=== PATIENT | female | born 1975 | race Caucasian/White ===

== ENCOUNTER 2017-02-19 19:58 | Emergency (ER) | payer OTHER, BC ==
[2017-02-19 20:23] VITALS: BP 136/84; PULSE 90; TEMP 99.4; BMI 25.7
--- NOTE | 2017-02-19 20:47 | PDOC ---
History of Present Illness - General Chief Complaint: Injury Stated Complaint: FALL/YPD Time Seen by Provider: 02/19/17 20:38 Past History - Past Medical History Allergies/Adverse Reactions: Allergies Allergy/AdvReac Type Severity Reaction Status Date / Time egg AdvReac GI UPSET Verified 02/19/17 20:23 Home Medications: Ambulatory Orders Cyanocobalamin [Vitamin B12 -] 100 mcg PO DAILY 10/29/12 Norgestimate-Ethinyl Estradiol [Mononessa 28 Tablet] 1 each PO DAILY 10/29/12 Anemia: Yes (B12 DEFICIENCY) Asthma: No Cancer: No Cardiac Disorders: No CVA: No COPD: No CHF: No DVT: No Dementia: No Diabetes: No Dialysis: No GI Disorders: Yes Disorders: No HTN: No Hypercholesterolemia: No Kidney Stones: No Liver Disease: No Psychiatric Problems: No Seizures: No Thyroid Disease: No Lung CA: No - Surgical History Abdominal Surgery: No Appendectomy: No Cardiac Surgery: No Cholecystectomy: No Gastric Stapling: No GI Surgery: No Lung Surgery: No Neurologic Surgery: No Orthopedic Surgery: No - Suicide/Smoking/Psychosocial Hx Smoking Status: Yes Smoking History: Current every day smoker Have you smoked in the past 12 months: Yes Number of Cigarettes Smoked Daily: 20 Information on smoking cessation initiated: No 'Breaking Loose' booklet given: 10/30/12 Hx Alcohol Use: No Drug/Substance Use Hx: No Substance Use Type: None *Physical Exam - Vital Signs Last Vital Signs Temp Pulse Resp BP Pulse Ox 99.4 F 90 20 136/84 97 02/19/17 20:19 02/19/17 20:19 02/19/17 20:19 02/19/17 20:19 02/19/17 20:19 *DC/Admit/Observation/Transfer Diagnosis at time of Disposition: Shoulder pain, right Qualifiers: Chronicity: acute Qualified Code(s): M25.511 - Pain in right shoulder Knee pain, right Qualifiers: Chronicity: acute Qualified Code(s): M25.561 - Pain in right knee Fall Qualifiers: Encounter type: initial encounter Qualified Code(s): W19.XXXA - Unspecified fall, initial encounter - Discharge Dispostion Disposition: HOME Condition at time of disposition: Good Admit: No - Referrals Referrals: Benji Bustos MD [Staff Physician] - - Patient Instructions Printed Discharge Instructions: DI for Shoulder Pain Additional Instructions: Your x-ray today was negative for any broken bones in her leg. Please wear the Mehul wrap to help reduce the size of the lump on your knee. You may also ice the area. Please use bacitracin over the scrape. Your given a sling to help relieve pain for your shoulder. If the symptoms of your shoulder pain do not relieve themselves within the next 2-3 days please see orthopedics. A referral has been provided for you. You may take Motrin 800 mg 3 times a day to help with your pain. Return to the emergency department if you have worsening pain, fevers, chills, or any changes in your symptoms. - Post Discharge Activity Forms/Work/School Notes: Back to Work
[2017-02-19] MEDS ORDERED: IBUPROFEN 400 MG TABLET (FP) PO ONE ×2 (20:48→20:50)
== END 2017-02-19 21:42 | disposition home or self-care (01) ==
LOC: JERFT 19:58
DX: M25.561 Pain in right knee (principal); M25.511 Pain in right shoulder; F17.210 Nicotine dependence, cigarettes, uncomplicated; W01.0XXA Fall on same level from slipping, tripping and stumbling without subsequent striking against object, initial encounter; Y93.89 Activity, other specified; Y92.89 Other specified places as the place of occurrence of the external cause
CPT/HCPCS: 73562-TC-RT; 99281-25

== ENCOUNTER 2018-05-30 18:23 | Emergency (ER) | payer OTHER, BC ==
--- NOTE | 2018-05-30 18:26 | PDOC ---
Rapid Medical Evaluation Time Seen by Provider: 05/30/18 18:24 Medical Evaluation: Allergies Allergy/AdvReac Type Severity Reaction Status Date / Time egg AdvReac GI UPSET Verified 02/19/17 20:23 05/30/18 18:24 I have performed a brief in-person evaluation of this patient. The patient presents with a chief complaint of: dizziness x 2 days Pertinent physical exam findings: Lungs CTAB. RRR. no m/r/g. I have ordered the following: labs, urine, CTA The patient will proceed to the ED for further evaluation. Discharge Disposition - Diagnosis Dizziness - Referrals - Patient Instructions - Post Discharge Activity
[2018-05-30 18:27] VITALS: BP 171/81; TEMP 97.9; BMI 25.4
--- NOTE | 2018-05-30 19:17 | PDOC ---
History of Present Illness - General Chief Complaint: Shortness of Breath Stated Complaint: SOB Time Seen by Provider: 05/30/18 18:24 - History of Present Illness Initial Comments: The pt is a 42F w/ a history of IBS, smoking, OCP use, and recent travel back from the [facility] who presents for evaluation of several days of fatigue and sudden onset SOB that started at 1700 today. 05/30/18 19:28 05/30/18 19:47 Past History - Past Medical History Allergies/Adverse Reactions: Allergies Allergy/AdvReac Type Severity Reaction Status Date / Time egg AdvReac GI UPSET Verified 05/30/18 18:27 Home Medications: Ambulatory Orders Cyanocobalamin [Vitamin B12 -] 100 mcg PO DAILY 10/29/12 Norgestimate-Ethinyl Estradiol [Mononessa 28 Tablet] 1 each PO DAILY 10/29/12 Anemia: Yes (B12 DEFICIENCY) Asthma: No Cancer: No Cardiac Disorders: No CVA: No COPD: No CHF: No DVT: No Dementia: No Diabetes: No Dialysis: No GI Disorders: Yes Disorders: No HTN: No Hypercholesterolemia: No Kidney Stones: No Liver Disease: No Psychiatric Problems: No Seizures: No Thyroid Disease: No Lung CA: No - Surgical History Abdominal Surgery: No Appendectomy: No Cardiac Surgery: No Cholecystectomy: No Gastric Stapling: No GI Surgery: No Lung Surgery: No Neurologic Surgery: No Orthopedic Surgery: No - Suicide/Smoking/Psychosocial Hx Smoking Status: Yes Smoking History: Former smoker Have you smoked in the past 12 months: No Number of Cigarettes Smoked Daily: 20 If you are a former smoker, when did you quit?: 2019 Information on smoking cessation initiated: No 'Breaking Loose' booklet given: 10/30/12 Hx Alcohol Use: No Drug/Substance Use Hx: No Substance Use Type: None Review of Systems - Review of Systems Able to Perform ROS?: Yes Comments:: GENERAL/CONSTITUTIONAL: No fever or chills. No weakness HEAD, EYES, EARS, NOSE AND THROAT: No change in vision. No ear pain or discharge. No sore throat CARDIOVASCULAR: No chest pain RESPIRATORY: Denies cough, hemoptysis GASTROINTESTINAL: No nausea, vomiting, diarrhea or constipation GENITOURINARY: No dysuria, frequency, or change in urination MUSCULOSKELETAL: No joint or muscle swelling or pain. No neck or back pain SKIN: No rash NEUROLOGIC: No loss of consciousness, or change in strength/sensation ENDOCRINE: No increased thirst. No abnormal weight change HEMATOLOGIC/LYMPHATIC: No anemia, easy bleeding, or history of blood clots ALLERGIC/IMMUNOLOGIC: No hives or skin allergy 05/30/18 19:16 Is the patient limited Swedish proficient: No *Physical Exam - Vital Signs Last Vital Signs Temp Pulse Resp BP Pulse Ox 97.9 F 94 H 20 171/81 H 100 05/30/18 18:25 05/30/18 18:25 05/30/18 18:25 05/30/18 18:25 05/30/18 18:25 - Physical Exam Comments: GENERAL: Awake, alert, and oriented to person/place/time, in no acute distress HEAD: No signs of trauma, normocephalic, atraumatic EYES: PERRLA, EOMI, sclera anicteric, conjunctiva clear ENT: Hearing grossly normal, nares patent, oropharynx clear without exudates. No uvular deviation. Moist mucosa LUNGS: No distress, speaks full sentences, clear to auscultation bilaterally HEART: Regular rate and rhythm, normal S1 and S2, no murmurs appreciated, peripheral pulses normal and equal bilaterally ABDOMEN: Soft, nontender, normoactive bowel sounds. No guarding, no rebound EXTREMITIES: Normal inspection, Normal range of motion, no edema. No clubbing or cyanosis NEUROLOGICAL: Cranial nerves II through XII grossly intact. Normal speech, normal gait, no focal sensorimotor deficits SKIN: Warm, Dry 05/30/18 19:17 ED Treatment Course - LABORATORY CBC & Chemistry Diagram: 05/30/18 19:10 05/31/18 01:06 Medical Decision Making - Medical Decision Making ED Course CBC to evaluate for anemia/leukocytosis Cardiac profile to evaluate for ACS CTA chest to evaluate for PE ECG 05/30/18 19:45 No leukocytosis No anemia 05/30/18 20:33 Given 1L NS Trop neg x2 Repeat HCO3 improved CTA neg for PE Pt feels improved s/p IVF Plan for D/C w/ PCP f/u Discharge instructions and return precautions given Dispo: home *DC/Admit/Observation/Transfer Diagnosis at time of Disposition: Shortness of breath - Discharge Dispostion Disposition: HOME Condition at time of disposition: Improved Decision to Admit order: No - Referrals Referrals: Elvi Iverson MD [Primary Care Provider] - - Patient Instructions Printed Discharge Instructions: DI for Shortness of Breath Additional Instructions: You were seen in the Emergency Department for evaluation of shortness of breath. Your scan was negative for blood clot. Your repeat labs were unremarkable. Review the handout provided at discharge. Follow up with your primary care provider. Return to the Emergency Department if you develop fevers/ chills, chest pain, worsening breathing/symptoms, vomiting, or any new/ concerning symptoms. - Post Discharge Activity
[2018-05-30 19:41] LABS: BASO % 0.3 % (0-2.0); EOS % 1.3 % (0-4.5); HEMATOCRIT 41.6 % (32.4-45.2); HEMOGLOBIN 14.2 GM/dL (10.7-15.3); LYMPH % 25.2 % (8-40); MCH 33.1 pg (25.7-33.7); MCHC 34.1 g/dl (32.0-36.0); MEAN CELL VOLUME 97.2 fl (80-96); MONO % 5.8 % (3.8-10.2); NEUT % 67.4 % (42.8-82.8); PLATELET COUNT 192 K/MM3 (134-434); RBC 4.28 M/mm3 (3.60-5.2); RDW 12.2 % (11.6-15.6)
[2018-05-30 19:54] LABS: INR 0.87 (0.83-1.09); PROTHROMBIN TIME (PATIENT) 10.2 SEC (9.7-13.0)
[2018-05-30 20:22] VITALS: PULSE 68
[2018-05-30 20:46] LABS: PH,URINE 6.5 (5.0-8.0); URINE APPEARANCE CLEAR; URINE BILIRUBIN NEGATIVE (NEGATIVE); URINE COLOR YELLOW; URINE GLUCOSE (UA) NEGATIVE (NEGATIVE); URINE KETONE TRACE (NEGATIVE); URINE LEUK ESTERASE NEGATIVE (NEGATIVE); URINE NITRITE NEGATIVE (NEGATIVE); URINE PROTEIN NEGATIVE (NEGATIVE); URINE UROBILINOGEN 0.2 mg/dL (0.2-1.0)
[2018-05-30 20:49] LABS: HCG,QUALITATIVE URINE Negative
[2018-05-30 21:27] LABS: ALBUMIN 0.7 g/dl (3.4-5.0); ALK PHOS 53 U/L (45-117); ANION GAP 23 MMOL/L (8-16); BILIRUBIN,TOTAL 0.4 mg/dL (0.2-1); BLOOD UREA NITROGEN 12 mg/dL (7-18); CHLORIDE 103 mmol/L (98-107); CO2 11 mmol/L (21-32); CREATININE 0.9 mg/dL (0.55-1.3); POTASSIUM 3.4 mmol/L (3.5-5.1); SGOT/AST 8 U/L (15-37); SGPT/ALT 15 U/L (13-61); SODIUM 138 mmol/L (136-145); TOT PROT 7.8 g/dl (6.4-8.2)
[2018-05-30 21:33] LABS: GLUCOSE,RANDOM 97 mg/dL (74-106)
[2018-05-30 21:34] LABS: CALCIUM 9.1 mg/dL (8.5-10.1)
[2018-05-31] MEDS ORDERED: SODIUM CHLORIDE 0.9% 500 ML INFUS.BAG IV ONE (00:37)
[2018-05-31 01:14] LABS: VENOUS PH 7.42 (7.31-7.41)
[2018-05-31 01:18] LABS: VENOUS PO2 28.4 mmHg (30-40)
[2018-05-31 01:48] LABS: ALBUMIN 4.1 g/dl (3.4-5.0); ALK PHOS 51 U/L (45-117); ANION GAP 9 MMOL/L (8-16); BILIRUBIN,TOTAL 0.5 mg/dL (0.2-1); BLOOD UREA NITROGEN 10 mg/dL (7-18); CALCIUM 9.3 mg/dL (8.5-10.1); CHLORIDE 101 mmol/L (98-107); CO2 25 mmol/L (21-32); CREATININE 0.7 mg/dL (0.55-1.3); GLUCOSE,RANDOM 84 mg/dL (74-106); POTASSIUM 3.8 mmol/L (3.5-5.1); SGOT/AST 12 U/L (15-37); SGPT/ALT 15 U/L (13-61); SODIUM 135 mmol/L (136-145)
--- NOTE | 2018-05-31 02:00 | PDOC ---
Documentation entered by Mann Gibson SCRIBE, acting as scribe for Lyn Bain DO. Lyn Bain DO: This documentation has been prepared by the Paige gee Matthew, SCRIBE, under my direction and personally reviewed by me in its entirety. I confirm that the documentation accurately reflects all work, treatment, procedures, and medical decision making performed by me. Attending Attestation - Resident Resident Name: Mireille Parhaman - HPI HPI: 05/30/18 19:41 Patient is a 42 year old female with a significant past medical history of Anemia, IBS, who presents to the ED with complaints of shortness of breath that began this afternoon. Patient reports experiencing gradual generalized fatigue that she states began earlier this week. She reports experiencing sudden shortness of breath this afternoon, that she states does not increase with movement or exertion but is constant at rest. She reports becoming concerned about her symptoms, prompting her to come into the ED for further evaluation. Patient states she has recently returned from the [facility], and states multiple people were sick on the flight, so she believed it to be a virus initially. She reports experiencing associated symptoms of vomiting and diarrhea, but states she believes that to be due to her IBS. Denies chest pain. Denies nausea, vomiting. Denies fevers, chills. Denies constipation, diarrhea. Denies dysuria, hematuria. Denies any other symptoms. Allergies: Eggs. NKDA. Social history: Current smoker. No alcohol. No illicit drugs. Surgical history: None PMD: None - Physicial Exam PE: 05/30/18 19:41 Agree with residents Physical Exam. - Medical Decision Making 05/31/18 01:57 42-year-old female with dyspnea status post returning from the [facility] CT of the chest shows no pulmonary embolism Cardiac enzymes are negative 2 Metabolic acidosis which appears to be compensatory is resolved Patient will be discharged to follow-up with her primary care physician
--- NOTE | 2018-05-31 12:06 | EKG ---
Test Reason : Blood Pressure : / mmHG Vent. Rate : 071 BPM Atrial Rate : 071 BPM P-R Int : 142 ms QRS Dur : 086 ms QT Int : 400 ms P-R-T Axes : 052 -02 023 degrees QTc Int : 434 ms NORMAL SINUS RHYTHM NORMAL ECG WHEN COMPARED WITH ECG OF 29-AUG-2001 10:25, ST NO LONGER ELEVATED IN INFERIOR LEADS Confirmed by DENNIS NOLEN MD ([id number]) on 05/31/2018 12:06:15 PM Referred By: Confirmed By:DENNIS NOLEN MD
== END 2018-05-31 02:34 | disposition home or self-care (01) ==
LOC: JER 18:23
DX: R06.02 Shortness of breath (principal); Z86.2 Personal history of diseases of the blood and blood-forming organs and certain disorders involving the immune mechanism; Z87.19 Personal history of other diseases of the digestive system
CPT/HCPCS: 36415; 71275-TC; 80053; 81003; 82550; 82803; 84484; 84703; 85025; 85610; 93005; 93010; 99284-25